=== PATIENT | male | born 1955 | race Caucasian/White ===

== ENCOUNTER 2019-11-01 07:37 | Inpatient (IN) | payer MEDICARE, MEDICAID ==
[~2019-11-01] VITALS: Ht 177.8 cm; Wt 64.3 kg
--- NOTE | 2019-11-01 08:58 | NUR ---
DR. WATERS'S OFFICE WAS CALLED. HE IS OUT SICK. THEY WILL GET A MESSAGE TO HIM. THERE IS NO OTHER PROVIDER COVERING HIS PRACTICE.
[2019-11-01] MEDS ORDERED: normal saline 1000ML IV soln IVB ONE (09:45)
[2019-11-01 10:57] LABS: BASOPHILS % (AUTO) 0.4 % (0-1); EOSINOPHILS # (AUTO) 0.4 X10'3 (0-0.9); EOSINOPHILS % (AUTO) 5.4 % (0-6); HEMATOCRIT 40.8 % (42.0-52.0); HEMOGLOBIN 13.8 g/dl (14.0-17.9); LYMPHOCYTES # (AUTO) 1.7 X10'3 (1.1-4.8); LYMPHOCYTES % (AUTO) 25.8 % (21-51); MEAN CORPUSCULAR HEMOGLOBIN 29.1 PG (27.0-31.0); MEAN CORPUSCULAR HGB CONC 33.8 g/dL (33.0-36.5); MEAN CORPUSCULAR VOLUME 86.1 FL (78-98); MEAN PLATELET VOLUME 7.6 FL (7.4-10.4); MONOCYTES # (AUTO) 0.4 X10'3 (0-0.9); MONOCYTES % (AUTO) 5.9 % (2-12); NEUTROPHILS # (AUTO) 4.2 X10'3 (1.8-7.7); NEUTROPHILS % (AUTO) 62.5 % (42-75); PLATELET COUNT 271 X10'3 (140-440); RED BLOOD COUNT 4.75 X10'6 (4.70-6.10); RED CELL DISTRIBUTION WIDTH 13.7 % (11.5-14.5); WHITE BLOOD COUNT 6.7 X10'3 (4.5-11.0)
[2019-11-01 11:13] LABS: ALANINE AMINOTRANSFERASE 32 U/L (12-78); ALBUMIN 3.3 G/DL (3.4-5.0); ALKALINE PHOSPHATASE 86 IU/L (46-116); ANION GAP 8 (8-16); ASPARTATE AMINO TRANSFERASE 19 U/L (10-37); BILIRUBIN,TOTAL 1.6 MG/DL (0.1-1.0); BLOOD UREA NITROGEN 13 MG/DL (7-18); BUN/CREATININE RATIO 15.9 (5.4-32.0); CALCIUM 9.6 MG/DL (8.5-10.1); CHLORIDE 106 MMOL/L (99-107); CREATININE 0.82 MG/DL (0.60-1.10); GLUCOSE 80 MG/DL (70-104); POTASSIUM 3.7 MMOL/L (3.5-5.1); SODIUM 141 MMOL/L (135-145); TOTAL CARBON DIOXIDE 27.1 MMOL/L (24-32); TOTAL PROTEIN 6.6 G/DL (6.4-8.2); eGFR > 90 ML/MIN
--- NOTE | 2019-11-01 14:00 | NUR ---
patient in IR
[2019-11-01] MEDS ORDERED: midazolam 2 mg/2 ml injection ONE ×2 (14:24→14:43)
[2019-11-01] MEDS ORDERED: fentaNYL/PF 50MCG/1 ML 2ML syringe ONE ×2 (14:24→14:43)
[2019-11-01] MEDS ORDERED: iohexol 300 MG/1 ML 50ml polymer ONE (14:50)
[2019-11-01] MEDS ORDERED: ketorolac tromethamine 15mg/ml inj. IV ONE (16:05)
[2019-11-01] MEDS ORDERED: PANT40TA4 PO (16:38)
[2019-11-01] MEDS ORDERED: LEVE100S21 PO (16:38)
[2019-11-01] MEDS ORDERED: METO50TA16 PO (16:38)
[2019-11-01] MEDS ORDERED: CHOL400T8 PO (16:38)
[2019-11-01] MEDS ORDERED: ASCO500C15 PO (16:38)
[2019-11-01] MEDS ORDERED: MULT-1215 PO (16:39)
[2019-11-01] MEDS ORDERED: normal saline 1000ml 1,000 ML IV SCH (16:56)
[2019-11-01] MEDS ORDERED: potassium Cl 20 mEq SR tablet PO PRN ×2 (17:00)
[2019-11-01] MEDS ORDERED: magnesium 4gm in 100ml NS 100 ML IV PRN (17:00)
[2019-11-01] MEDS ORDERED: magnesium Cl slow-release 64mg tablet PO PRN (17:00)
[2019-11-01] MEDS ORDERED: magnesium 2GM in 50ml NS 50 ML IV PRN (17:00)
[2019-11-01] MEDS ORDERED: potassium CL 10mEq/100ml bag 100 ML IV PRN ×2 (17:00)
[2019-11-01] MEDS: K and/or MAG REPLACEMENT MC SCH (20:00)
--- NOTE | 2019-11-01 20:12 | NUR ---
I talked to the car wiper regarding what tube feeding needs to be started on patient; and at what rate and if any free water since the tube feeding is to be started. Mary the clinical car wiper called me back and made recommendations for all my questions. I will wyatt the branch operations specialist physician to obtain tube feeding orders for the patient.
[2019-11-01] MEDS ORDERED: hydrALAZINE 20mg/ml inj. IV PRN (21:20)
[2019-11-01] MEDS: benzocaine/menthol oral lozeng 1 EACH BOX MM PRN (21:49)
[2019-11-01 22:00] VITALS: BP 163/102
[2019-11-01] MEDS: HYDROcodone/acetaminophen 5mg/325mg tablet PO PRN (22:22)
[2019-11-02 06:00] VITALS: BP 154/99
[2019-11-02 07:04] LABS: BASOPHILS % (AUTO) 0.6 % (0-1); EOSINOPHILS # (AUTO) 0.5 X10'3 (0-0.9); EOSINOPHILS % (AUTO) 6.3 % (0-6); HEMATOCRIT 42.9 % (42.0-52.0); HEMOGLOBIN 14.7 g/dl (14.0-17.9); LYMPHOCYTES # (AUTO) 2.9 X10'3 (1.1-4.8); LYMPHOCYTES % (AUTO) 40.3 % (21-51); MEAN CORPUSCULAR HEMOGLOBIN 29.5 PG (27.0-31.0); MEAN CORPUSCULAR HGB CONC 34.2 g/dL (33.0-36.5); MEAN CORPUSCULAR VOLUME 86.1 FL (78-98); MEAN PLATELET VOLUME 7.6 FL (7.4-10.4); MONOCYTES # (AUTO) 0.5 X10'3 (0-0.9); MONOCYTES % (AUTO) 7.4 % (2-12); NEUTROPHILS # (AUTO) 3.3 X10'3 (1.8-7.7); NEUTROPHILS % (AUTO) 45.4 % (42-75); PLATELET COUNT 320 X10'3 (140-440); RED BLOOD COUNT 4.98 X10'6 (4.70-6.10); RED CELL DISTRIBUTION WIDTH 13.8 % (11.5-14.5); WHITE BLOOD COUNT 7.2 X10'3 (4.5-11.0)
[2019-11-02 07:12] LABS: ALBUMIN 3.5 G/DL (3.4-5.0); ANION GAP 7 (8-16); BLOOD UREA NITROGEN 13 MG/DL (7-18); BUN/CREATININE RATIO 12.5 (5.4-32.0); CALCIUM 9.6 MG/DL (8.5-10.1); CHLORIDE 106 MMOL/L (99-107); CREATININE 1.04 MG/DL (0.60-1.10); GLUCOSE 123 MG/DL (70-104); MAGNESIUM 1.8 MG/DL (1.5-2.4); POTASSIUM 4.2 MMOL/L (3.5-5.1); SODIUM 142 MMOL/L (135-145); TOTAL CARBON DIOXIDE 28.8 MMOL/L (24-32); eGFR 72 ML/MIN
[2019-11-02] MEDS: K and/or MAG REPLACEMENT MC SCH ×2 (08:26→20:00)
--- NOTE | 2019-11-02 08:32 | NUR ---
Increased feeding to 40mls per order. Addendum: 11/02/19 at 0832 by Devorah Ivy RN Amended: Links added.
--- NOTE | 2019-11-02 09:30 | NUR ---
Nixon Bowens to reconcile patients med rec. Addendum: 11/02/19 at 1057 by Devorah Ivy RN Due to patient being a seizure patient with seizure meds BID and HTN and needing those two medications since they weren't given last night.
[2019-11-02 10:33] VITALS: BP 156/95
--- NOTE | 2019-11-02 10:42 | NUR ---
TF consult: Pt with hx esophageal rupture/perforation s/p surgical repairs however patient's inability to swallow has gotten progressively worse and is not able to tolerate even liquids per H&P. Pt is not a candidate for PEG at this time per H&P. TF recommendations below for admit as well as home recs are calculated to meet 100% of patient's estimated nutrient needs using IBW. Pt currently receiving TF using TwoCal at 40 mL/hr with goal rate of 90 mL/hr per previous RD recommendations, d/w RN new goal rate of 45 mL/hr as to not overfeed pt. Home TF recommendations have been given to RN. Will continue to follow. Recommendations: 1) Continuous TF using TwoCal with goal rate of 45 mL/hr to provide: 1080 mL total volume/day, 2160 kcal, 90 g protein, and 756 mL water 2) Additional 200 mL water flush Q4H 3) Prealbumin q / 4) Daily weights 5) Routine bowel [facility] TF RECOMMENDATIONS: 1) TF using Nutren 2.0 or equivalent with goal rate of 90 mL/hr for 12 hours to begin at 30 mL/hr and advance by 30 mL as tolerated Q4H until goal rate is met. Additional 200 mL water flush Q4H to begin with feedings over the course of 12 hours to provide 800 mL water 2) Additional 400 mL water daily 3) Outpatient RD to titrate TF to goal rate and make adjustment as needed according to patient's estimated nutrient needs Addendum: 11/02/19 at [address] Amended: Links added.
--- NOTE | 2019-11-02 11:05 | NUR ---
Spoke with regarding medications, will restart medications.
[2019-11-02] MEDS: metoprolol tartrate 50mg tablet CORPAK SCH ×2 (12:29→20:22)
[2019-11-02] MEDS: cholecalciferol (vitamin D) 400 unit tablet CORPAK SCH (12:29)
[2019-11-02] MEDS: ascorbic acid 500mg tablet CORPAK SCH (12:30)
[2019-11-02] MEDS: levetiracetam 100mg/ml oral solution 5ml UD cup PO SCH ×2 (12:31→20:24)
[2019-11-02] MEDS: multi-vitamin w/minerals & ferrous gluconate 9 MG/15 ML oral LIQUID PO SCH (12:34)
--- NOTE | 2019-11-02 13:30 | NUR ---
Patient in room ORTHO 4012. I have received report from Devorah KAUFMAN and had the opportunity to ask questions and assume patient care.
--- NOTE | 2019-11-02 17:02 | NUR ---
Patient report to SHAE Frazier
[2019-11-02 18:00] VITALS: BP 156/90
--- NOTE | 2019-11-02 18:25 | NUR ---
Patient report given to Ansley KAUFMAN
--- NOTE | 2019-11-02 18:26 | NUR ---
Patient in room ORTHO 4012. I have received report from Karin KAUFMAN and had the opportunity to ask questions and assume patient care.
[2019-11-02] MEDS: pantoprazole 40mg Tablet.DR PO SCH (20:20)
[2019-11-02 22:00] VITALS: BP 145/96
[2019-11-03] MEDS: HYDROcodone/acetaminophen 5mg/325mg tablet PO PRN ×2 (00:16→19:20)
[2019-11-03 05:00] VITALS: BP 145/94
[2019-11-03 06:26] LABS: BASOPHILS % (AUTO) 0.5 % (0-1); EOSINOPHILS # (AUTO) 0.4 X10'3 (0-0.9); EOSINOPHILS % (AUTO) 7.6 % (0-6); HEMATOCRIT 38.1 % (42.0-52.0); HEMOGLOBIN 13.3 g/dl (14.0-17.9); LYMPHOCYTES # (AUTO) 1.4 X10'3 (1.1-4.8); LYMPHOCYTES % (AUTO) 24.1 % (21-51); MEAN CORPUSCULAR HEMOGLOBIN 29.5 PG (27.0-31.0); MEAN CORPUSCULAR HGB CONC 34.8 g/dL (33.0-36.5); MEAN CORPUSCULAR VOLUME 84.8 FL (78-98); MEAN PLATELET VOLUME 7.8 FL (7.4-10.4); MONOCYTES # (AUTO) 0.5 X10'3 (0-0.9); NEUTROPHILS # (AUTO) 3.4 X10'3 (1.8-7.7); NEUTROPHILS % (AUTO) 58.8 % (42-75); PLATELET COUNT 269 X10'3 (140-440); RED BLOOD COUNT 4.49 X10'6 (4.70-6.10); RED CELL DISTRIBUTION WIDTH 13.8 % (11.5-14.5); WHITE BLOOD COUNT 5.8 X10'3 (4.5-11.0)
[2019-11-03 06:29] LABS: ANION GAP 6 (8-16); BLOOD UREA NITROGEN 10 MG/DL (7-18); BUN/CREATININE RATIO 13.7 (5.4-32.0); CHLORIDE 107 MMOL/L (99-107); CREATININE 0.73 MG/DL (0.60-1.10); GLUCOSE 109 MG/DL (70-104); MAGNESIUM 1.8 MG/DL (1.5-2.4); POTASSIUM 3.9 MMOL/L (3.5-5.1); SODIUM 141 MMOL/L (135-145); TOTAL CARBON DIOXIDE 28.4 MMOL/L (24-32); eGFR > 90 ML/MIN
--- NOTE | 2019-11-03 06:37 | NUR ---
Problems reprioritized. Patient report given, questions answered & plan of care reviewed with Poppy KAUFMAN.
--- NOTE | 2019-11-03 06:46 | NUR ---
Patient in room ORTHO 4012B. I have received report from ANN KAUFMAN and had the opportunity to ask questions and assume patient care.
[2019-11-03] MEDS: K and/or MAG REPLACEMENT MC SCH ×2 (07:16→20:00)
[2019-11-03] MEDS: multi-vitamin w/minerals & ferrous gluconate 9 MG/15 ML oral LIQUID PO SCH (08:00)
[2019-11-03 10:00] VITALS: BP 129/81
[2019-11-03] MEDS: cholecalciferol (vitamin D) 400 unit tablet CORPAK SCH (10:21)
[2019-11-03] MEDS: ascorbic acid 500mg tablet CORPAK SCH (10:21)
[2019-11-03] MEDS: metoprolol tartrate 50mg tablet CORPAK SCH ×2 (10:21→19:19)
[2019-11-03] MEDS: levetiracetam 100mg/ml oral solution 5ml UD cup PO SCH ×2 (10:22→19:19)
--- NOTE | 2019-11-03 16:25 | NUR ---
Malnutrition consult: Pt tolerating NGTF at goal meeting needs. Current scaled wt is only wt hx. Pt seen by RD and reports GI surgeon reported he could not have PEG following prior surgeries. Pt is thinner but does not have significant indentations in temporal/facial. Rest of the body is covered so unable to fully visibly assess but at this time pt does not meet minimum malnutrition criteria. Pt reports has pump delivered tomorrow for NG feeds at home. Will continue to monitor. TF consult: Pt with hx esophageal rupture/perforation s/p surgical repairs however patient's inability to swallow has gotten progressively worse and is not able to tolerate even liquids per H&P. Pt is not a candidate for PEG at this time per H&P. TF recommendations below for admit as well as home recs are calculated to meet 100% of patient's estimated nutrient needs using IBW. Pt currently receiving TF using TwoCal at 40 mL/hr with goal rate of 90 mL/hr per previous RD recommendations, d/w RN new goal rate of 45 mL/hr as to not overfeed pt. Home TF recommendations have been given to RN. Will continue to follow. Recommendations: 1) Continuous TF using TwoCal with goal rate of 45 mL/hr to provide: 1080 mL total volume/day, 2160 kcal, 90 g protein, and 756 mL water 2) Additional 200 mL water flush Q4H 3) Prealbumin q / 4) Daily weights 5) Routine bowel custodial TF RECOMMENDATIONS: 1) Cyclic TF using Nutren 2.0 or equivalent with goal rate of 90 mL/hr for 12 hours to begin at 30 mL/hr and advance by 30 mL as tolerated Q4H until goal rate is met. Additional 200 mL water flush Q4H to begin with feedings over the course of 12 hours to provide 800 mL water 2) Additional 400 mL water daily 3) Outpatient RD to titrate TF to goal rate and make adjustment as needed according to patient's estimated nutrient needs Addendum: 11/03/19 at [address] Amended: Links added.
[2019-11-03 18:00] VITALS: BP 133/84
--- NOTE | 2019-11-03 19:04 | NUR ---
RECEIVED REPORT FROM STEPHANIE KAUFMAN AND ASSUMED PATIENT CARE
[2019-11-03] MEDS: pantoprazole 40mg Tablet.DR PO SCH (19:19)
[2019-11-03] MEDS: benzocaine/menthol oral lozeng 1 EACH BOX MM PRN (19:20)
[2019-11-03 22:00] VITALS: BP 124/84
[2019-11-04] MEDS: HYDROcodone/acetaminophen 5mg/325mg tablet PO PRN (00:13)
--- NOTE | 2019-11-04 00:17 | NUR ---
NEW TUBE FEED HUNG
[2019-11-04 06:00] VITALS: BP 134/87
[2019-11-04] MEDS: ascorbic acid 500mg tablet CORPAK SCH (07:08)
[2019-11-04] MEDS: cholecalciferol (vitamin D) 400 unit tablet CORPAK SCH (07:08)
[2019-11-04] MEDS: levetiracetam 100mg/ml oral solution 5ml UD cup PO SCH (07:08)
[2019-11-04 07:09] VITALS: BP_SYST 136
[2019-11-04] MEDS: metoprolol tartrate 50mg tablet CORPAK SCH (07:09)
[2019-11-04 07:22] LABS: BASOPHILS % (AUTO) 0.3 % (0-1); EOSINOPHILS # (AUTO) 0.4 X10'3 (0-0.9); EOSINOPHILS % (AUTO) 5.9 % (0-6); HEMATOCRIT 38.6 % (42.0-52.0); HEMOGLOBIN 13.3 g/dl (14.0-17.9); LYMPHOCYTES # (AUTO) 1.3 X10'3 (1.1-4.8); LYMPHOCYTES % (AUTO) 17.8 % (21-51); MEAN CORPUSCULAR HEMOGLOBIN 30.2 PG (27.0-31.0); MEAN CORPUSCULAR HGB CONC 34.5 g/dL (33.0-36.5); MEAN CORPUSCULAR VOLUME 87.7 FL (78-98); MEAN PLATELET VOLUME 8.3 FL (7.4-10.4); MONOCYTES # (AUTO) 0.5 X10'3 (0-0.9); MONOCYTES % (AUTO) 6.8 % (2-12); NEUTROPHILS % (AUTO) 69.2 % (42-75); PLATELET COUNT 268 X10'3 (140-440); RED CELL DISTRIBUTION WIDTH 14.1 % (11.5-14.5); WHITE BLOOD COUNT 7.3 X10'3 (4.5-11.0)
[2019-11-04] MEDS ORDERED: MULTIVIT-MIN/FERROUS GLUCONATE 9 MG/15 ML LIQUID PO SCH (07:27)
[2019-11-04 07:40] LABS: ANION GAP 4 (8-16); BLOOD UREA NITROGEN 14 MG/DL (7-18); BUN/CREATININE RATIO 17.5 (5.4-32.0); CALCIUM 8.9 MG/DL (8.5-10.1); CHLORIDE 106 MMOL/L (99-107); GLUCOSE 107 MG/DL (70-104); MAGNESIUM 1.9 MG/DL (1.5-2.4); PREALBUMIN 18.7 MG/DL (19-36); SODIUM 140 MMOL/L (135-145); TOTAL CARBON DIOXIDE 29.7 MMOL/L (24-32); eGFR > 90 ML/MIN
[2019-11-04 07:41] LABS: POTASSIUM 4.1 MMOL/L (3.5-5.1)
[2019-11-04] MEDS: K and/or MAG REPLACEMENT MC SCH (08:00)
--- NOTE | 2019-11-04 15:25 | NUR ---
STABLE FOR DISCHARGE PER MD, DISCHARGE PACKET REVIEWED AND ALL QUESTIONS ANSWERED W/ THE PT, PIV DISCONTINUED, BELONGINGS COLLECTED AND SENT W THE PT, WHEELED TO THE LOBBY BY RN AND , LEFT IN PRIVATE VEHICLE.
== END 2019-11-04 15:00 | disposition home health service (06) | DRG 392 ==
LOC: ER 07:38 → ED HOLD 16:56 → OBSVTOIN 16:56 → ORTHO 4S 19:25
PROVIDERS: ADMIT Internal Medicine; ATTEND Family Medicine
PROC: 0DHA3UZ Insertion of Feeding Device into Jejunum, Percutaneous Approach (ICD-10-PCS; principal; 2019-11-01)
DX: K22.2 Esophageal obstruction (principal); E46 Unspecified protein-calorie malnutrition; I10 Essential (primary) hypertension; R00.0 Tachycardia, unspecified; Z66 Do not resuscitate; G40.909 Epilepsy, unspecified, not intractable, without status epilepticus; M54.2 Cervicalgia; Z93.1 Gastrostomy status; Z88.8 Allergy status to other drugs, medicaments and biological substances; Z91.048 Other nonmedicinal substance allergy status; Z79.899 Other long term (current) drug therapy; Z68.20 Body mass index [BMI] 20.0-20.9, adult
CPT/HCPCS: 36415; 43752; 70360; 80048; 80053; 82948; 83735; 84134; 85025; 87081; 96361; 96374; 99285; G0378; J1885; J2250; J3010; Q9967

== ENCOUNTER 2019-11-12 10:57 | Day surgery (SDC) | payer MEDICARE, MEDICAID ==
[~2019-11-12] VITALS: Ht 177.8 cm; Wt 65.2 kg
[~2019-11-12 10:57] MED LIST: ASCO500C15 PO; CHOL400T8 PO; LEVE100S21 PO; METO50TA16 PO; MULT-1215 PO; PANT40TA4 PO
[2019-11-12 11:21] VITALS: BP 125/93
[2019-11-12] MEDS ORDERED: normal saline 1000ml 1,000 ML IV PRN (11:25)
[2019-11-12] MEDS ORDERED: midazolam 2 mg/2 ml injection IV PRN (12:25)
[2019-11-12] MEDS ORDERED: LIDOcaine 1% 30ml preserv. free vial SQ ONE (12:25)
[2019-11-12] MEDS ORDERED: fentaNYL/PF 50MCG/1 ML 2ML syringe IV PRN (12:25)
[2019-11-12] MEDS ORDERED: fentaNYL/PF 50MCG/1 ML 2ML syringe ONE (12:28)
[2019-11-12] MEDS ORDERED: midazolam 2 mg/2 ml injection ONE ×2 (12:28→12:53)
[2019-11-12] MEDS ORDERED: LIDOcaine/PRILOcaine 5gm cream TP ONE (12:45)
[2019-11-12 13:30] VITALS: BP 124/80
[2019-11-12 13:49] VITALS: BP 139/76
[2019-11-12 14:03] VITALS: BP 114/76
[2019-11-12 14:16] VITALS: BP 124/77
== END 2019-11-12 14:36 | disposition home or self-care (01) ==
LOC: SSTAY O 10:57
PROVIDERS: ATTEND Radiology Vascular & Interventional Radiology
DX: K22.3 Perforation of esophagus (principal)
CPT/HCPCS: 43752; 99152; 99153; J2250; J3010; J7030; C1769